=== PATIENT | female | born 1960 | race Caucasian/White ===

== ENCOUNTER → 2023-08-10 12:31 | Outpatient (REF) | payer OTHER, SELFPAY | LOC: HWRAD 12:31 | PROVIDERS: ATTENDING PHYSICIAN Physician Assistant Medical | DX: Z12.31 Encounter for screening mammogram for malignant neoplasm of breast (principal); Z78.0 Asymptomatic menopausal state | CPT/HCPCS: 77063; 77067; 77080 ==

== ENCOUNTER → 2024-08-25 14:58 | Outpatient (REF) | payer OTHER, SELFPAY | LOC: WDC 14:58 | PROVIDERS: ATTENDING PHYSICIAN Obstetrics & Gynecology; FAMILY PHYSICIAN Physician Assistant Medical | DX: Z12.31 Encounter for screening mammogram for malignant neoplasm of breast (principal) | CPT/HCPCS: 77063; 77067 ==

== ENCOUNTER → 2024-09-14 16:36 | Outpatient (REF) | payer OTHER, SELFPAY | LOC: RAD 16:36 | PROVIDERS: ATTENDING PHYSICIAN Physician Assistant Medical | DX: R06.02 Shortness of breath (principal) | CPT/HCPCS: 71046 ==

== ENCOUNTER → 2024-12-01 12:47 | Outpatient (REF) | payer OTHER, SELFPAY | LOC: HWRAD 12:47 | PROVIDERS: ATTENDING PHYSICIAN Physician Assistant Medical | DX: R91.1 Solitary pulmonary nodule (principal) | CPT/HCPCS: 71250 ==

== ENCOUNTER 2024-12-02 10:34 | Emergency (ER) | payer OTHER, SELFPAY ==
[2024-12-02 10:43] VITALS: BP 102/74
[2024-12-02 11:52] VITALS: BP 119/77
[2024-12-02 11:57] VITALS: BMI 20.2
[2024-12-02 12:00] VITALS: BP 115/76
--- NOTE | 2024-12-02 12:07 | ED.GENMED ---
History of Present Illness
General
Chief Complaint: Chest Pain
Source: patient
Exam Limitations: none
Time Seen by Provider: 12/02/24 11:13
Nursing documentation reviewed up to this point in time: agreed with
History of Present Illness
History of Present Illness:
64-year-old female presenting to the emergency department today with concerns of abnormal CT scan as an outpatient. Has had ongoing chest pain shortness of breath lightheadedness over the past month or so. Saw the primary care doctor had an
outpatient CT scan that showed a moderate pericardial effusion with sent to the ER. Does have ongoing symptoms at this point. Denies any recent fevers denies any known history of this.
Past History
Past History
ED Past Medical History: Other (History of migraines, diverticulitis.)
ED Past Surgical History: , Orthopedic (History of right wrist surgery in the and right elbow surgery) and Other (Breast lump surgery 1988)
Social History
Tobacco: Non-smoker
Alcohol: None
Drug: None
Personal: Single
Living: with family
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
Review of Systems
Review of Systems
Allergies reviewed?: Yes
All Other Systems: ROS reviewed and negative except as documented in HPI and ROS
Phy Exam
Physical Exam
Physical Exam:
GENERAL: Alert , in no apparent distress
EYE: pupils equal and reactive
NECK: Supple, no significant adenopathy.
ENT: o/p clr, mmm.
CARDIAC: Regular rate and rhythm .
LUNGS: Clear breath sounds bilaterally, no acute respiratory distress, no wheezes/rales/rhonchi
ABDOMEN: Soft, without focal tenderness, no r/g, no cvat
NEUROLOGICAL: Alert and oriented, no focal neuro deficits
SKIN: Warm and dry, skin intact.
MUSCULOSKELETAL: No edema, well perfused.
PSYCH: Normal and appropriate interaction.
Course
Orders/Labs/Results
Orders:
Orders
12/02/24 10:37
EKG [Electrocardiogram (*1)] Urgent
Reason for Study: Chest Pain
EKG- Treatment ONCE
12/02/24 11:59
Complete Blood Count/With Diff Urgent
Erythrocyte Sed Rate Urgent
Comment: ESR ADDED ON BY FLOOR 2:35PM 12-02-24
NT-proBNP Urgent
PTT Urgent
Troponin I Urgent
12/02/24 13:10
Echo 2D MMode Color/Doppler Urgent
Reason for Study: pericardial effusion on CT, Dr. Magallon aware requesting
12/02/24 13:22
Basic Metabolic Panel Urgent
C-Reactive Protein Urgent
Comment: CRP ADDED ON BY FLOOR 2:35PM 12-02-24
12/02/24 14:36
Add On- LAB Routine
Tests Added?: ESR and CRP
12/02/24 14:56
Colchicine 0.6 mg PO NOW STA
Abnormal Lab Results
12/02/24 12/02/24
11:59 13:22
WBC 4.4 L 10^3/uL
(4.8-10.8)
RBC 4.07 L 10^6/uL
(4.20-5.40)
Hct 36.7 L %
(37.0-47.0)
MPV 11.3 H fL
(7.4-10.4)
BUN 19 H mg/dl
(7-17)
12/02/24 11:59
12/02/24 13:22
Vital Signs
Initial and Last Documented VS:
Initial Vital Signs
Temp Pulse Resp BP Pulse Ox
98.7 F 81 18 102/74 99
12/02/24 10:43 12/02/24 10:43 12/02/24 10:43 12/02/24 10:43 12/02/24 10:43
Last Documented Vital Signs
Temp Pulse Resp BP Pulse Ox
98.7 F 66 11 109/78 85
12/02/24 10:43 12/02/24 14:47 12/02/24 14:47 12/02/24 14:47 12/02/24 14:47
MDM/Problems Addressed
MDM/Problems Addressed:
64-year-old female presenting to the emergency department today with concerns of ongoing chest pain shortness of breath over the past few months. Was seen by the primary care doctor CT scan was ordered that showed moderate pericardial effusion was
then sent to the ER. Ongoing symptoms while here. Vital signs are normal on arrival. Patient in no distress. Normal heart and lung exam. Case discussed with cardiology recommending an echo for further assessment. Echo showing small pericardial
effusion. Cardiology believes is from pericarditis and recommend treatment with colchicine as well as NSAID. Otherwise patient stable for discharge at this time. Return precautions given.
*Pulse Oximetry
SaO2: 99
Oxygen Mode of Delivery: Room air
ED Attending Note
-
Portions of this chart may have been created with voice recognition software.� Occasional wrong word or��sound alike� substitutions may have occurred due to the inherent limitations of voice recognition software.
Discharge Plan
Departure
Patient Disposition: Home (Routine Discharge)
Date of Disposition: 12/02/24
Time of Disposition: 15:09
Patient with high blood pressure during this ER visit?: No
Condition: Good
Covid-19: Not Applicable
Discharge Problem:
Pericarditis
Instructions: Pericarditis in adults
Prescriptions:
New
colchicine 0.6 mg tablet
0.6 mg PO BID 90 Days Qty: 180 0RF
No Action
prednisone 20 MG tablet
40 mg PO .DAILY-FINISHED 11/05
Patient Comments:
pt reports her last dose is tonight 11/06/11
seems unsure of her meds
Ibuprofen
2 tab PO PRN PRN (Reason: BRISCOE)
Patient Comments:
pt does not know dose
ondansetron HCl [Zofran] 4 MG tablet
4 mg PO Q8HPRN PRN (Reason: prn for nausea and vomiting) Qty: 14 0RF
oxycodone-acetaminophen [Percocet] 1 EACH tablet
1 - 2 ea PO Q4HPRN PRN (Reason: for severe pain) Qty: 20 0RF
hyoscyamine sulfate [HyoMax-SL] 0.125 MG tablet, sublingual
0.125 mg sublingual Q4HPRN PRN (Reason: prn for abdominal pain) Qty: 30 0RF
cyclobenzaprine 10 MG tablet
10 mg PO BIDPRN PRN (Reason: bck pain) Qty: 20 0RF
ondansetron 4 mg tablet,disintegrating
4 mg PO Q8H PRN (Reason: nausea and vomiting) Qty: 14 0RF
Referrals:
Jacky Magallon MD [Active, Cardiology] - Follow up in 10 days
Katiuska Iniguez PA-C [Family Provider, Family Practice]
Stand Alone Forms: Return to Work
Activity Restrictions/Additional Instructions:
You came to the emergency department today with concerns of a pericardial effusion. You had an assessment here that did not show any emergent findings otherwise. This could be from pericarditis. Please take the colchicine twice daily over the
next 3 months and follow-up closely with cardiology. Return for any worsening, new or concerning symptoms.
Interventions
Interventions:
*Risk Screen - Suicide Last Done: 12/02/24 10:43
*General Assessment Last Done: 12/02/24 10:43
*Neglect/Abuse Screening Last Done: 12/02/24 10:43
*ED- Fall Risk Assessment Last Done: 12/02/24 11:53
*ED COVID-19 Vaccine History Last Done: 12/02/24 11:53
ED- Cardiac Assessment Last Done: 12/02/24 11:53
Discharge Date and Time
Print Language: ICELANDIC
[2024-12-02 12:28] LABS: Hematocrit 36.7 % (37.0-47.0); Hemoglobin 12.5 g/dL (12.0-16.0); Mean Corp Hgb Conc. 34.1 g/dL (33.0-37.0); Mean Corpuscular Volume 90.2 fL (81.0-99.0); Nucleated Red Blood Cells % 0 %; Platelet Count 213 10^3/uL (130-400); Red Cell Dist. Width 12.6 % (11.5-14.5)
[2024-12-02 12:39] LABS: APTT 27.4 Sec (23.4-35.0)
[2024-12-02 12:59] LABS: Troponin I < 0.012 ng/ml
[2024-12-02 13:00] VITALS: BP 111/77
[2024-12-02 13:57] LABS: Blood Urea Nitrogen 19 mg/dl (7-17); Calcium 9.5 mg/dl (8.4-10.2); Carbon Dioxide 25 mmol/L (22-30); Chloride 105 mmol/L (98-107); Estimated Creatinine Clearance 76 ml/min; Glucose 86 mg/dl (70-99); Sodium 135 mmol/L (135-145); eGFR > 60.00
--- NOTE | 2024-12-02 14:01 | CON.CAR ---
Addendum entered and electronically signed by Jacky Magallon MD 12/02/24 16:07:
I saw and examined the patient.
The [employer] OFFICER's note was reviewed and I agree with the note.
Comment:
64-year-old female with no significant past medical history who presents after being told by her PCP to come to the ER for a moderate pericardial effusion seen on chest CT. On interview she reports a multitude of complaints including but not
limited to chest pain and shortness of breath for the past few months. Just feels 'off'. She thinks her chest pain may be worse when she lays down to go to sleep at night. Not pleuritic or exertional. No recent viral illnesses. No unexplained
weight loss.
Physical exam: RRR, no murmurs, clear lungs, no lower extremity edema
Labs notable for undetectable troponin, proBNP 45, normal ESR, WBC 4.4
TTE 12/02/2024: LVEF 65-70%, no VHD, small pericardial effusion anterior to the RV
ECG 12/02/2024: Normal sinus rhythm, incomplete RBBB, no evidence of ischemia
Small pericardial effusion: Unclear etiology. Given concomitant chest pain, could have pericarditis though ECG is not consistent and ESR is normal. We will try treatment for pericarditis to see if this helps. She should take colchicine 0.6 mg
twice daily for 3 months. She should take ibuprofen 600 mg 3 times daily and decrease dose by 200 mg/week. We will see her in the office in 4 weeks with a repeat echocardiogram prior to monitor her effusion. She should have updated cancer
screening. I have added on a TSH to screen for thyroid abnormalities.
Original Note:
Consultation
Consultation Request
Date/Time Consultation Requested: 12/02/24 1335
Date/Time Consultation Performed: 12/02/24 1345
Requesting Provider: Chris GRACE
Performing Provider: Juhi HIGUERA for Dr. Magallon
Reason for Consultation: pericardial effusion
Medical History
-
Chief Complaint: SOB, CP
History of Present Illness:
64 y/o female (saw Dr. Castro in 2019 in office- normal stress, echo, holter) who denies any daily meds or significant PMH has been having CP and SOB, as as fatigue, leg cramps at night, and generally has not been feeling herself for the past few
months. CT scan as OP revealed at least a small to moderate pericardial effusion and she was sent to the ER for further evaluation. Preliminary echo reading shows small pericardial effusion. Her CP seems random and is not associated with exertion.
Her SOB is that way as well. She is in no distress at the time of my assessment. Trop and EKG unremarkable.
Past Medical History
Past Medical History: None (denies)
Social History
Tobacco: Non-Smoker
Alcohol: Occasional
Employment: Employed
Family History
Family History: Reviewed & Not Pertinent
Allergies / Home Medications
Allergy/AdvReac Type Severity Reaction Status Date / Time
Iodinated Contrast Media (IV Allergy Anaphylaxis, Verified 12/02/24 10:46
Dye, Iodine Containing) THROAT
TIGHTENS
ciprofloxacin (From Cipro) AdvReac NAUSEA AND Verified 12/02/24 10:46
VOMITING
�Medication �Instructions �Recorded �Confirmed �Type
Ibuprofen 2 tab PO PRN PRN BRISCOE 11/06/11 11/06/11 History
ondansetron HCl 4 mg tablet 4 mg PO Q8HPRN PRN prn for nausea 11/06/11 Rx
(Zofran) and vomiting #14 tabs
prednisone 20 mg tablet 40 mg PO .DAILY-FINISHED 11/0511/06/11 11/06/11 History
hyoscyamine sulfate 0.125 mg 0.125 mg sublingual Q4HPRN PRN prn 12/16/11 Rx
sublingual tablet (HyoMax-SL) for abdominal pain ##30
oxycodone-acetaminophen 5 mg-325 1 - 2 ea (1 - 2 x 5-325 mg) PO 12/16/11 Rx
mg tablet (Percocet) Q4HPRN PRN for severe pain ##20
cyclobenzaprine 10 mg tablet 10 mg PO BIDPRN PRN bck pain #20 06/14/19 Rx
tabs
ondansetron 4 mg disintegrating 4 mg PO Q8H PRN nausea and 12/11/21 Rx
tablet vomiting #14 tabs
Review of Systems
-
History Source: Patient
All other systems: Negative unless noted
Constitutional: Fatigue
Respiratory: Trouble Breathing
Cardiac: Chest Pain
Musculoskeletal: Other (leg cramps at night)
Physical Exam
Vital Signs
Temp Pulse Resp BP Pulse Ox
98.7 F 65 11 111/77 96
12/02/24 10:43 12/02/24 13:00 12/02/24 13:00 12/02/24 13:00 12/02/24 13:00
Lab Results
12/02/24 11:59
12/02/24 13:22
Troponin I < 0.012 ng/ml 12/02/24 11:59
Ayo-I-Rcrmvpyodaw Pept 45.2 pg/ml 12/02/24 11:59
Physical Exam
General: Well Developed, Well Nourished and No Apparent Distress
HEENT: Normocephalic and Anicteric
Respiratory: Clear and Non Labored Respirations
Cardiac: Regular Rhythm
Musculoskeletal: No Edema
Skin: Warm and Dry
Neuro: AO x 3
Psych: Calm
Impression / Plan
-
Pericardial effusion:
-CT scan: At least a small to moderate pericardial effusion.
-echo results pending, but small on preliminary review
-VSS
-f/u office visit 4 weeks with echo prior our office will call and arrange- I have contacted to office regarding this and they will contact her.
Chest discomfort:
-trop and EKG are fine
-possible pericarditis as cause. Denies recent known recent viral illness.
-adding on ESR and CRP
-colchicine x 3 months and ibuprofen course with taper- she can used OTC PPI such as pantoprazole while on high dose PPI, which we discussed
SOB:
-should continue OP w/u for this with PCP/Pulm, not typical that it would be related to a small pericardial effusion
Lung opacity:
-CT scan- Predominantly triangular shaped 0.6 cm right upper lobe nodular opacity.
-this will require f/u with PCP or pulm- we discussed this
She should have continued w/u for her multiple non-cardiac symptoms (inpatient (IM) versus OP (PCP) - defer to ER provider on this)
Data Reviewed
-
EKG: Tracing Personally Visualized and interpreted (SR with IC RBBB)
CT Scan: Report Reviewed by me (At least a small to moderate pericardial effusion. Consider Echocardiogram for more complete evaluation. Predominantly triangular shaped 0.6 cm right upper lobe nodular opacity. Recommend follow-up Chest CT, perhaps
in 6 months.)
Medical Tests (Nuc Med, Echo etc): Report Reviewed by me (Echo 05/05/19: Normal echocardiogram. Stress test 05/05/19: Normal exercise treadmill test at 13 METS. Holter 04/22/19: Normal Holter monitor.)
Labs: Labs Reviewed by me
[2024-12-02 14:47] VITALS: BP 109/78
[2024-12-02] MEDS: COLCHICINE 0.6 MG PO (15:13)
[2024-12-02 15:36] VITALS: BP 119/83
== END 2024-12-02 15:37 | disposition home or self-care (01) ==
LOC: EMR 10:34
PROVIDERS: Physician Assistant; EMERGENCY PHYSICIAN Emergency Medicine; FAMILY PHYSICIAN Physician Assistant Medical
DX: I31.9 Disease of pericardium, unspecified (principal); I45.10 Unspecified right bundle-branch block
CPT/HCPCS: 99284; 80048; 83880; 84484; 85025; 85652; 85730; 93005; 93306

== ENCOUNTER → 2024-12-09 09:54 | Outpatient (REF) | payer OTHER, SELFPAY | LOC: WDC 09:54 | PROVIDERS: ATTENDING PHYSICIAN Obstetrics & Gynecology; FAMILY PHYSICIAN Physician Assistant Medical | DX: R92.30 Dense breasts, unspecified (principal) | CPT/HCPCS: 76641 ==

== ENCOUNTER → 2024-12-29 09:00 | Outpatient (REF) | payer OTHER, SELFPAY | LOC: RCS 09:00 | PROVIDERS: ATTENDING PHYSICIAN Student in an Organized Health Care Education/Training Program; FAMILY PHYSICIAN Physician Assistant Medical | DX: I31.39 Other pericardial effusion (noninflammatory) (principal) | CPT/HCPCS: 93308; 93321; 93325 ==

== ENCOUNTER → 2025-01-18 07:44 | Outpatient (REF) | payer OTHER, SELFPAY | LOC: RCS 07:44 | PROVIDERS: ATTENDING PHYSICIAN Nurse Practitioner; FAMILY PHYSICIAN Physician Assistant Medical | DX: I31.8 Other specified diseases of pericardium (principal); R07.89 Other chest pain | CPT/HCPCS: 93017; 93350 ==

== ENCOUNTER → 2025-03-28 12:57 | Outpatient (REF) | payer OTHER, SELFPAY | LOC: RCS 12:57 | PROVIDERS: ATTENDING PHYSICIAN Internal Medicine; FAMILY PHYSICIAN Physician Assistant Medical | DX: R00.2 Palpitations (principal) | CPT/HCPCS: 93225; 93226 ==